=== PATIENT | female | born 1995 | race Hispanic/Latino ===

== ENCOUNTER 2018-06-14 21:00 | Emergency (ER) | payer MEDICAID, SELFPAY ==
[~2018-06-14] VITALS: Ht 165.1 cm; Wt 59.1 kg
[2018-06-14 23:37] LABS: URINE PREG TEST NEGATIVE (NEGATIVE)
[2018-06-14] MEDS ORDERED: KEFL500C17 PO (23:58)
[2018-06-14] MEDS ORDERED: SELE1SH TOP (23:58)
[2018-06-15] MEDS ORDERED: CEPHALEXIN 500 MG CAP PO ONE
[2018-06-15 00:16] VITALS: BP 116/72
[2018-06-16] MEDS ORDERED: PRENTAB55 PO (20:33)
[2018-06-16] MEDS ORDERED: VENTAER INH (20:44)
[2018-06-16] MEDS ORDERED: ALBU83IN NEB (20:44)
== END 2018-06-15 00:18 | disposition home or self-care (01) ==
LOC: M ED 21:00
DX: B35.0 Tinea barbae and tinea capitis (principal); N39.0 Urinary tract infection, site not specified; J06.9 Acute upper respiratory infection, unspecified; F17.200 Nicotine dependence, unspecified, uncomplicated

== ENCOUNTER 2018-06-16 20:25 | Emergency (ER) | payer MEDICAID, SELFPAY ==
[~2018-06-16] VITALS: Ht 165.1 cm; Wt 52.7 kg
[2018-06-16 20:25] VITALS: BP 144/72
[~2018-06-16 20:25] MED LIST: KEFL500C17 PO; SELE1SH TOP
[2018-06-16] MEDS ORDERED: PRENTAB55 PO (20:33)
[2018-06-16] MEDS ORDERED: VENTAER INH (20:44)
[2018-06-16] MEDS ORDERED: ALBU83IN NEB (20:44)
== END 2018-06-16 21:47 | disposition home or self-care (01) ==
LOC: M ED 20:25
DX: J45.909 Unspecified asthma, uncomplicated (principal); J06.9 Acute upper respiratory infection, unspecified

== ENCOUNTER 2018-07-13 19:44 | Emergency (ER) | payer SELFPAY ==
[~2018-07-13] VITALS: Ht 165.1 cm; Wt 51.8 kg
[2018-07-13 19:44] VITALS: BP 127/76
[~2018-07-13 19:44] MED LIST changes: +ALBU83IN NEB; +PRENTAB55 PO; +VENTAER INH
[2018-07-13 21:06] LABS: HEMATOCRIT 36.8 % (36.0-47.0); HEMOGLOBIN 11.9 g/dl (12.0-15.5); MEAN CORPUSCULAR HEMOGLOBIN 31.2 pg (27.0-33.0); MEAN CORPUSCULAR HGB CONC 32.3 g/dl (32.0-36.5); MEAN CORPUSCULAR VOLUME 96.6 fl (80.0-96.0); PLATELET COUNT, AUTOMATED 204 10^3/uL (150-450); RED BLOOD COUNT 3.81 10^6/uL (4.00-5.40); WHITE BLOOD COUNT 6.6 10^3/uL (4.0-10.0)
[2018-07-13 21:29] LABS: BLOOD UREA NITROGEN 14 MG/DL (7-18); CALCIUM LEVEL 8.7 MG/DL (8.5-10.1); CARBON DIOXIDE LEVEL 23 MEQ/L (21-32); CHLORIDE LEVEL 105 MEQ/L (98-107); CREATININE FOR GFR 0.74 MG/DL (0.55-1.30); GLOMERULAR FILTRATION RATE > 60.0 (>60); GLUCOSE, FASTING 84 MG/DL (70-100); HCG, SERUM QUANTITATIVE < 1.0 MIU/ML; SODIUM LEVEL 138 MEQ/L (136-145)
[2018-07-13] MEDS ORDERED: ACETAMINOPHEN 325 MG TAB PO ONE (21:45)
--- NOTE | 2018-07-14 00:08 | REPVR ---
EXAM: US Pelvis Complete, Transabdominal and US Pelvis, Transvaginal and US Duplex Artery and Vein, Ovaries, Complete EXAM DATE/TIME: 07/13/2018 11:32 PM CLINICAL HISTORY: 23 years old, female; Vaginal bleeding. Last menstrual period on 05/13/2018. 5 para 3. TECHNIQUE: Real-time transabdominal and transvaginal pelvic ultrasound (complete) with image documentation. Transvaginal imaging was used for better evaluation of the endometrium and adnexa. Real-time duplex ultrasound scan of the arterial and venous flow of the ovaries with B-mode, color Doppler flow and spectral waveform analysis. Complete transabdominal pelvis ultrasound and complete duplex were performed. COMPARISON: No relevant prior studies available. FINDINGS: Uterus/cervix: Uterus is normal. The uterus is anteverted and measures 9.6 cm x 4.8 cm x 6.1 cm. Endometrial stripe is normal and measures 12 mm in thickness. Right adnexa: The right ovary measures 4.2 cm x 2 cm x 2.8 cm and there is a 1.8 cm x 1.3 cm x 1.7 cm isoechoic region in the right ovary, which may represent a hemorrhagic ovarian cyst or normal ovarian tissue. No right tubal mass is present. The arterial and venous color Doppler flow and spectral waveforms within the right ovary are within normal limits, without evidence for right ovarian torsion. Left adnexa: The left ovary measures 3.8 cm x 1.7 cm x 1.6 cm and is normal. Normal-sized follicles are present in the left ovary. No left ovarian cyst or left adnexal mass is present. The arterial and venous color Doppler flow and spectral waveforms within the left ovary are within normal limits, without evidence for left ovarian torsion. Free fluid: None. Bladder: The decompressed urinary bladder is unremarkable. IMPRESSION: 1.8 cm x 1.3 cm x 1.7 cm isoechoic region in the right ovary, which may represent a hemorrhagic right ovarian cyst or normal ovarian tissue. Electronically signed by: Marc Sánchez On 07/14/2018 00:08:43 AM
--- NOTE | 2018-07-14 07:17 | ED PDOC ---
Post-Departure Follow-Up nils mckenzie faxed formal report of pelvic us for fu mlg. Berry Titus MD Jul 14, 2018 07:17
== END 2018-07-13 23:48 | disposition home or self-care (01) ==
LOC: M ED 19:44
DX: N93.9 Abnormal uterine and vaginal bleeding, unspecified (principal); J45.909 Unspecified asthma, uncomplicated; Z72.0 Tobacco use; Z79.899 Other long term (current) drug therapy; Z88.5 Allergy status to narcotic agent

== ENCOUNTER 2018-08-15 13:46 | Emergency (ER) | payer MEDICAID, SELFPAY ==
[~2018-08-15] VITALS: Ht 165.1 cm; Wt 62.2 kg
--- NOTE | 2018-08-15 15:16 | REP ---
Left humerus: Two views. History: Trauma. Findings: Two views of the left humerus demonstrate normal bones joints and soft tissues. No fracture or subluxation is seen. Impression: Negative radiographs of the left humerus. Electronically Signed by Brayden Juárez MD 08/15/2018 03:08 P
--- NOTE | 2018-08-15 15:17 | REP ---
Left elbow: Four views. History: Injury in a fall. Findings: Four views left elbow demonstrate no evidence of fracture or subluxation. No evidence of joint effusion. Impression: Negative radiographs left elbow. Electronically Signed by Brayden Juárez MD 08/15/2018 03:09 P
--- NOTE | 2018-08-15 15:26 | REP ---
LEFT HAND, FOUR VIEWS: Four views of the left hand are performed. There is a nondisplaced fracture at the base of the fourth proximal phalanx. No other acute fracture, dislocation, or intrinsic bone disease is visualized. Electronically Signed by Wiliam James MD 08/18/2018 11:51 A
[2018-08-15] MEDS ORDERED: ADACEL/BOOSTRIX VACCINE (DIPHTH/PERTUSS/ACELL/TETANUS)0.5ML SYR (90715) IM ONE (16:00)
[2018-08-15 16:40] VITALS: BP 117/67
== END 2018-08-15 16:43 | disposition home or self-care (01) ==
LOC: M ED 13:46
DX: S62.645A Nondisplaced fracture of proximal phalanx of left ring finger, initial encounter for closed fracture (principal); S60.042A Contusion of left ring finger without damage to nail, initial encounter; W10.9XXA Fall (on) (from) unspecified stairs and steps, initial encounter; Y92.099 Unspecified place in other non-institutional residence as the place of occurrence of the external cause; Y93.9 Activity, unspecified; Y99.9 Unspecified external cause status; J45.909 Unspecified asthma, uncomplicated; M32.9 Systemic lupus erythematosus, unspecified; Z77.098 Contact with and (suspected) exposure to other hazardous, chiefly nonmedicinal, chemicals; Z88.5 Allergy status to narcotic agent

== ENCOUNTER → 2018-09-03 | Outpatient (CLI) | payer MEDICAID | LOC: M OUTALCOH 09:21 | PROVIDERS: ATTEND Psychiatry & Neurology Psychiatry | DX: Z13.89 Encounter for screening for other disorder (principal); F12.20 Cannabis dependence, uncomplicated ==

== ENCOUNTER 2018-09-19 14:00 | Outpatient (RCR) | payer MEDICAID | END 2018-10-07 | LOC: M OUTALCOH 14:00 | PROVIDERS: ATTEND Psychiatry & Neurology Psychiatry | DX: F12.10 Cannabis abuse, uncomplicated (principal) ==

== ENCOUNTER 2022-06-11 13:42 | Emergency (ER) | payer OTHER, SELFPAY ==
[~2022-06-11] VITALS: Ht 165.1 cm; Wt 58.3 kg
[~2022-06-11 13:42] MED LIST changes: +ALBU2.5V10 NEB; -ALBU83IN NEB
[2022-06-11] MEDS ORDERED: TETRACAINE 0.5% OPHTH SOLN 4ML OU ONE (15:15)
[2022-06-11] MEDS ORDERED: ERYTHROMYCIN OPHTH OINT OU ONE (15:35)
[2022-06-11] MEDS ORDERED: ERYT5OIN25 OP (15:39)
[2022-06-11 15:59] VITALS: BP 135/72
== END 2022-06-11 16:06 | disposition home or self-care (01) ==
LOC: M ED 15:18
DX: H10.023 Other mucopurulent conjunctivitis, bilateral (principal); M32.9 Systemic lupus erythematosus, unspecified; Z88.5 Allergy status to narcotic agent; Z91.040 Latex allergy status

== ENCOUNTER → 2022-06-15 | Outpatient (CLI) | payer OTHER ==
[~2022-06-15] MED LIST changes: +ERYT5OIN25 OP
[2022-06-15 19:23] LABS: BLOOD UREA NITROGEN 21 MG/DL (9-23); CALCIUM LEVEL 8.9 MG/DL (8.5-10.1); CARBON DIOXIDE LEVEL 27 MMOL/L (20-31); CHLORIDE LEVEL 103 MMOL/L (98-107); CREATININE FOR GFR 0.59 MG/DL (0.55-1.30); GLOMERULAR FILTRATION RATE > 60.0 (>60); GLUCOSE, FASTING 83 MG/DL (60-100); POTASSIUM SERUM 4.1 MMOL/L (3.5-5.1); SODIUM LEVEL 137 MMOL/L (136-145)
== END ==
LOC: M LAB 18:16
PROVIDERS: ATTEND Emergency Medicine
DX: H54.7 Unspecified visual loss (principal)

== ENCOUNTER → 2022-06-19 | Outpatient (CLI) | payer OTHER ==
[~2022-06-19] MED LIST changes: +PROHANCE 279.3MG/ML 15ML VIAL As Ordered ONE
== END ==
LOC: M RAD 16:35
PROVIDERS: ATTEND Ophthalmology
DX: H57.11 Ocular pain, right eye (principal); H54.0X33 Blindness right eye category 3, blindness left eye category 3
CPT/HCPCS: 70543; 70553; A9576

== ENCOUNTER 2022-08-08 19:35 | Emergency (ER) | payer OTHER ==
[~2022-08-08] VITALS: Ht 165.1 cm; Wt 58.4 kg
[~2022-08-08 19:35] MED LIST changes: -PROHANCE 279.3MG/ML 15ML VIAL As Ordered ONE
[2022-08-08] MEDS ORDERED: NASA1SPR NARES (22:25)
[2022-08-08] MEDS ORDERED: VENTAER INH (22:25)
[2022-08-08 22:29] VITALS: BP 112/73
== END 2022-08-08 22:32 | disposition home or self-care (01) ==
LOC: M ED 19:35
DX: J02.9 Acute pharyngitis, unspecified (principal); R05.9 Cough, unspecified; R50.9 Fever, unspecified; M32.9 Systemic lupus erythematosus, unspecified; J45.909 Unspecified asthma, uncomplicated; R56.9 Unspecified convulsions; F41.9 Anxiety disorder, unspecified; F31.9 Bipolar disorder, unspecified; F20.9 Schizophrenia, unspecified; F17.290 Nicotine dependence, other tobacco product, uncomplicated; Z88.5 Allergy status to narcotic agent; Z91.040 Latex allergy status; Z91.018 Allergy to other foods; Z79.51 Long term (current) use of inhaled steroids; Z79.899 Other long term (current) drug therapy

== ENCOUNTER 2024-08-19 20:32 | Emergency (ER) | payer OTHER ==
[~2024-08-19] VITALS: Ht 165.1 cm; Wt 57.4 kg
[~2024-08-19 20:32] MED LIST changes: +NASA1SPR NARES
[2024-08-19] MEDS ORDERED: TRAZ-252 PO (20:44)
[2024-08-19] MEDS ORDERED: TRAZ-257 PO (20:44)
[2024-08-19] MEDS ORDERED: ADDE1TAB14 PO (20:44)
[2024-08-19 22:26] VITALS: BP 112/55; TEMP 97.1; O2SAT 100
== END 2024-08-19 22:58 | disposition home or self-care (01) ==
LOC: M ED 20:32
DX: S40.012A Contusion of left shoulder, initial encounter (principal); W10.8XXA Fall (on) (from) other stairs and steps, initial encounter; M32.9 Systemic lupus erythematosus, unspecified; F17.200 Nicotine dependence, unspecified, uncomplicated; F10.10 Alcohol abuse, uncomplicated; Z88.5 Allergy status to narcotic agent; Z91.040 Latex allergy status; Z91.018 Allergy to other foods; Y92.511 Restaurant or cafe as the place of occurrence of the external cause; Y93.89 Activity, other specified; Y99.9 Unspecified external cause status; Z79.899 Other long term (current) drug therapy

== ENCOUNTER 2024-10-19 19:41 | Emergency (ER) | payer OTHER ==
[~2024-10-19] VITALS: Ht 165.1 cm; Wt 53.4 kg
[~2024-10-19 19:41] MED LIST changes: +ADDE1TAB14 PO; +TRAZ-252 PO; +TRAZ-257 PO
[2024-10-19 19:47] VITALS: BP 146/66; TEMP 99.4; O2SAT 100
== END 2024-10-19 21:35 | disposition left against medical advice (07) ==
LOC: M ED 19:41
DX: Z53.21 Procedure and treatment not carried out due to patient leaving prior to being seen by health care provider (principal)

== ENCOUNTER 2024-10-20 11:24 | Emergency (ER) | payer OTHER ==
[~2024-10-20] VITALS: Ht 162.6 cm; Wt 52.8 kg
[2024-10-20 13:31] VITALS: BP 106/61; TEMP 98.1; O2SAT 100
== END 2024-10-20 13:39 | disposition home or self-care (01) ==
LOC: M ED 11:24
DX: M79.631 Pain in right forearm (principal); Z88.1 Allergy status to other antibiotic agents; Z88.5 Allergy status to narcotic agent; Z91.040 Latex allergy status; Z91.018 Allergy to other foods; Z79.899 Other long term (current) drug therapy

== ENCOUNTER 2025-03-22 12:00 | Emergency (ER) | payer OTHER ==
[~2025-03-22] VITALS: Ht 162.6 cm; Wt 51.1 kg
[2025-03-22] MEDS ORDERED: AMOX875T2 (12:15)
[2025-03-22] MEDS ORDERED: DEXTROAMP-AMPHET (12:15)
[2025-03-22] MEDS ORDERED: FLUTISP (12:15)
[2025-03-22] MEDS ORDERED: BENZ200C70 (12:15)
[2025-03-22 12:41] LABS: BASO # 0.0 10^3/uL (0.0-0.2); BASO % 0.3 % (0.0-1.0); EOS # 0.0 10^3/uL (0.0-0.5); EOS % 1.1 % (0.0-3.0); LYMPH # 1.6 10^3/uL (1.5-5.0); LYMPH % 43.3 % (24.0-44.0); MONO # 0.4 10^3/uL (0.0-0.8); MONO % 9.5 % (2.0-8.0); NEUTROPHILS # 1.7 10^3/uL (1.5-8.5); NEUTROPHILS % 45.5 % (36.0-66.0); PLATELET COUNT, AUTOMATED 233 10^3/uL (150-450)
[2025-03-22 13:00] LABS: ALT/SGPT 12.0 U/L (7.0-40); AST/SGOT 12.0 U/L (<34)
[2025-03-22 13:11] LABS: HCG, SERUM QUALITATIVE NEGATIVE (NEGATIVE)
[2025-03-22 13:59] LABS: KETONE, URINE AUTO RFX NEGATIVE (NEGATIVE); LEUKOCYTE ESTERASE UR AUTO RFX NEGATIVE (NEGATIVE); MUCUS, URINE RFX LARGE (NEGATIVE); NITRITE, URINE AUTO RFX NEGATIVE (NEGATIVE); RBC, URINE AUTO RFX 0 /HPF (0-3); SQUAM EPITHELIAL CELL UR AURFX 10 /HPF (0-6); WBC, URINE AUTO RFX 1 /HPF (0-3)
[2025-03-22 15:21] VITALS: BP 106/52; TEMP 98.3; O2SAT 100
[2025-03-22] MEDS ORDERED: COLA100C5 PO (15:53)
[2025-03-22] MEDS: MAGNESIUM CITRATE 300 ML BTL PO ONE (16:00)
== END 2025-03-22 16:06 | disposition home or self-care (01) ==
LOC: M ED 12:00
DX: R10.9 Unspecified abdominal pain (principal); M32.9 Systemic lupus erythematosus, unspecified; Z88.5 Allergy status to narcotic agent; Z91.040 Latex allergy status; Z91.018 Allergy to other foods; Z79.2 Long term (current) use of antibiotics; Z79.899 Other long term (current) drug therapy